=== PATIENT | male | born 1985 | race Caucasian/White ===

== ENCOUNTER → 2016-11-11 | Outpatient (CLI) | payer OTHER | LOC: BMCIMAGING 16:41 | PROVIDERS: ATTEND Internal Medicine | DX: R07.89 Other chest pain (principal) ==

== ENCOUNTER → 2016-12-13 | Outpatient (CLI) | payer OTHER | LOC: CIMAGING 08:14 | PROVIDERS: ATTEND Internal Medicine | DX: R07.89 Other chest pain (principal); R10.10 Upper abdominal pain, unspecified | CPT/HCPCS: 71250-PO ==